=== PATIENT | female | born 1970 | race African-American/Black ===

== ENCOUNTER 2016-12-12 07:24 | Emergency (ER) | payer MEDICAID ==
[~2016-12-12] VITALS: Ht 149.9 cm; Wt 48.0 kg
[~2016-12-12 07:24] MED LIST: OXYC20TA2 PO
[2016-12-12] MEDS ORDERED: ONDANSETRON 2MG/ML, 2ML IVPush ONE (08:00)
[2016-12-12] MEDS ORDERED: SODIUM CHLORIDE 0.9% 1,000ML IVBOLUS ONE (08:00)
[2016-12-12] MEDS ORDERED: SODIUM CHLORIDE FLUSH 10ML SYR IVF ONE (08:00)
[2016-12-12] MEDS ORDERED: ONDANSETRON 2MG/ML, 2ML ONE (08:12)
[2016-12-12] MEDS ORDERED: MAALOX/HYOSCYAMINE/LIDOCAINE 45 ML BOTTLE ONE (08:27)
[2016-12-12] MEDS ORDERED: FAMOTIDINE 20 MG/2 ML ONE (08:27)
[2016-12-12] MEDS ORDERED: FAMOTIDINE 20 MG/2 ML IVP ONE (08:30)
[2016-12-12] MEDS ORDERED: MAALOX/HYOSCYAMINE/LIDOCAINE 45 ML BOTTLE PO ONE (08:30)
[2016-12-12 08:41] LABS: ASPARTATE AMINO TRANSFERASE 12 U/L (15-37); BLOOD UREA NITROGEN 13 mg/dL (7-18)
[2016-12-12 08:46] LABS: IS PT STATUS REG ER OR PRE ER? YES
[2016-12-12] MEDS ORDERED: PROMETHAZINE 25 MG/ML, 1ML IM ONE (09:00)
[2016-12-12] MEDS ORDERED: PROMETHAZINE 25 MG/ML, 1ML ONE (09:39)
[2016-12-12] MEDS ORDERED: MORPHINE SULFATE 4 MG/ML, 1ML ONE (10:03)
[2016-12-12 10:24] VITALS: BP 124/68
[2016-12-12] MEDS ORDERED: MORPHINE SULFATE 4 MG/ML, 1ML IVPush PRN (10:30)
[2016-12-13] MEDS ORDERED: ALPR0.5T10 SL (02:37)
== END 2016-12-12 10:42 | disposition home or self-care (01) ==
LOC: ED 08:41
DX: A08.4 Viral intestinal infection, unspecified (principal); R10.84 Generalized abdominal pain
CPT/HCPCS: 36415; 80053; 81001; 83690; 84484; 84703; 85025; 87086; 93005; 96361; 96372; 96374; 96375; 99285; J2405; J2550; J7030; S0028

== ENCOUNTER 2016-12-13 02:27 | Emergency (ER) | payer MEDICAID ==
[~2016-12-13] VITALS: Ht 149.9 cm; Wt 52.3 kg
[2016-12-13] MEDS ORDERED: ALPR0.5T10 SL (02:37)
[2016-12-13] MEDS ORDERED: PROMETHAZINE 25 MG/ML, 1ML ONE (02:52)
[2016-12-13] MEDS ORDERED: DICYCLOMINE 10 MG/ML, 2ML IM ONE (03:00)
[2016-12-13] MEDS ORDERED: PROMETHAZINE 25 MG/ML, 1ML IM ONE (03:00)
[2016-12-13] MEDS ORDERED: MAALOX/HYOSCYAMINE/LIDOCAINE 45 ML BOTTLE ONE (03:06)
[2016-12-13] MEDS ORDERED: MAALOX/HYOSCYAMINE/LIDOCAINE 45 ML BOTTLE PO ONE (03:30)
[2016-12-13 03:57] VITALS: BP 146/88
== END 2016-12-13 04:00 | disposition home or self-care (01) ==
LOC: ED 03:43
DX: R10.84 Generalized abdominal pain (principal); R19.7 Diarrhea, unspecified; R11.2 Nausea with vomiting, unspecified
CPT/HCPCS: 71010; 93005; 96372; 99284; J0500; J2550

== ENCOUNTER 2017-02-21 18:11 | Inpatient (IN) | payer MEDICAID ==
[~2017-02-21] VITALS: Ht 149.9 cm; Wt 63.0 kg
[~2017-02-21 18:11] MED LIST changes: +ALPR0.5T10 SL
[2017-02-21] MEDS ORDERED: ONDANSETRON 2MG/ML, 2ML IVPush ONE (18:30)
[2017-02-21] MEDS ORDERED: SODIUM CHLORIDE 0.9% 1,000ML IVBOLUS ONE (18:30)
[2017-02-21] MEDS ORDERED: SODIUM CHLORIDE FLUSH 10ML SYR IVF ONE (18:30)
[2017-02-21] MEDS ORDERED: FAMOTIDINE 20 MG/2 ML IVP ONE (18:30)
[2017-02-21 19:23] LABS: HEMATOCRIT 42.8 % (34.6-47.8); HEMOGLOBIN 14.5 g/dL (11.7-16.4); WHITE BLOOD COUNT 17.3 x10^3/uL (3.4-10)
[2017-02-21 19:33] LABS: ASPARTATE AMINO TRANSFERASE 12 U/L (15-37); BLOOD UREA NITROGEN 9 mg/dL (7-18)
[2017-02-21] MEDS ORDERED: FAMOTIDINE 20 MG/2 ML ONE (19:58)
[2017-02-21] MEDS ORDERED: ONDANSETRON 2MG/ML, 2ML ONE (19:58)
[2017-02-21] MEDS ORDERED: MORPHINE SULFATE 4 MG/ML, 1ML ONE (21:16)
[2017-02-21] MEDS ORDERED: MORPHINE SULFATE 4 MG/ML, 1ML IVPush ONE (21:30)
[2017-02-21] MEDS ORDERED: OMNIPAQUE 350 MG/ML, 100ML BOTTLE ONE (23:08)
[2017-02-22] MEDS ORDERED: CEFOTETAN PMX 1GM/50ML 50 ML IV ONE
[2017-02-22] MEDS ORDERED: MORPHINE SULFATE 4 MG/ML, 1ML IVPush ONE
[2017-02-22] MEDS ORDERED: ONDANSETRON 2MG/ML, 2ML IVPush ONE
[2017-02-22] MEDS ORDERED: SODIUM CHLORIDE 0.9% 1,000 ML IV ONE (00:01)
[2017-02-22] MEDS ORDERED: MORPHINE SULFATE 4 MG/ML, 1ML ONE (00:14)
[2017-02-22] MEDS ORDERED: ONDANSETRON 2MG/ML, 2ML ONE ×2 (00:14→06:23)
[2017-02-22] MEDS ORDERED: CEFOTETAN PMX 1GM/50ML 50 ML ONE (00:14)
[2017-02-22] MEDS ORDERED: ONDANSETRON 2MG/ML, 2ML IVPush PRN (00:30)
[2017-02-22] MEDS ORDERED: HYDROmorphone 1 MG/ML, 1ML IVPush PRN (00:30)
[2017-02-22] MEDS ORDERED: SODIUM CHLORIDE FLUSH 10ML SYR IVF PRN (00:30)
[2017-02-22 01:30] VITALS: BP 133/71
[2017-02-22] MEDS ORDERED: BUPIVACAINE/PF 0.5% ONE (02:55)
[2017-02-22 03:23] VITALS: BP 133/71
[2017-02-22 05:22] VITALS: BP 106/64
[2017-02-22] MEDS ORDERED: FENTANYL PF 100 MCG/2ML ONE ×3 (06:17→08:22)
[2017-02-22] MEDS ORDERED: SUCCINYLCHOLINE 20 MG/ML, 10ML ONE (06:23)
[2017-02-22] MEDS ORDERED: ROCURONIUM 10 MG/ML ONE (06:23)
[2017-02-22] MEDS ORDERED: GLYCOPYRROLATE 0.2MG/1ML ONE (06:23)
[2017-02-22] MEDS ORDERED: DEXAMETHASONE 4 MG/ML, 1ML ONE (06:23)
[2017-02-22] MEDS ORDERED: NEOSTIGMINE 1 MG/ML, 10ML ONE (06:23)
[2017-02-22] MEDS ORDERED: CEFOTETAN 1 GM ONE (06:23)
[2017-02-22] MEDS ORDERED: BUPIVACAINE/PF-EPI 0.5% 1:200K IM ONE (06:37)
[2017-02-22] MEDS ORDERED: PROMETHAZINE 25 MG/ML, 1ML IV PRN (07:00)
[2017-02-22] MEDS ORDERED: ACETAMINOPHEN 325 MG TABLET PO PRN (07:00)
[2017-02-22] MEDS ORDERED: OXYcodone 5 MG/5 ML ORAL.SOL UDC PO PRN (07:00)
[2017-02-22] MEDS ORDERED: HYDROmorphone 2 MG/ML, 1ML ONE ×2 (07:07→08:22)
[2017-02-22] MEDS ORDERED: BUPIVACAINE/PF 0.25% ONE ×2 (07:16→07:27)
[2017-02-22] MEDS: FENTANYL PF 100 MCG/2ML IV PRN ×2 (08:24→08:29)
[2017-02-22] MEDS: HYDROmorphone 1 MG/ML, 1ML IV PRN ×2 (08:36→08:54)
[2017-02-22] MEDS ORDERED: OXYcodone 5 MG/5 ML ORAL.SOL UDC ONE (08:56)
[2017-02-22] MEDS ORDERED: ACETAMINOPHEN 650 MG/20.3 ML UDC ONE (08:57)
[2017-02-22 09:25] VITALS: BP 107/65
[2017-02-22] MEDS ORDERED: morphine SULFATE 10 MG/ML, 1ML IV PRN (10:00)
[2017-02-22] MEDS: FAMOTIDINE 20 MG/2 ML IVPush SCH ×2 (10:29→21:25)
[2017-02-22] MEDS: D5%-0.45NACL+KCL 20MEQ 1,000 ML IV SCH ×3 (10:29→20:07)
[2017-02-22] MEDS ORDERED: OXYcodone IR 5MG TABLET PO PRN (12:00)
[2017-02-22] MEDS: HYDROmorphone 2 MG/ML, 1ML IVPush PRN ×4 (12:07→21:27)
[2017-02-22 15:35] VITALS: BP 125/85
[2017-02-22] MEDS ORDERED: IBUPROFEN 200 MG TABLET PO PRN (19:00)
[2017-02-22 19:38] VITALS: BP 125/79
[2017-02-22] MEDS: ACETAMINOPHEN 325 MG TABLET PO PRN (21:31)
[2017-02-23] MEDS: ONDANSETRON 2MG/ML, 2ML IV PRN (01:13)
[2017-02-23 02:22] VITALS: BP 158/91
[2017-02-23] MEDS: PROCHLORPERAZINE 5 MG/ML, 2ML IVPush PRN ×2 (02:25→09:29)
[2017-02-23] MEDS: HYDROmorphone 2 MG/ML, 1ML IVPush PRN ×5 (03:32→17:35)
[2017-02-23 05:42] LABS: WHITE BLOOD COUNT 12.8 x10^3/uL (3.4-10)
[2017-02-23] MEDS: D5%-0.45NACL+KCL 20MEQ 1,000 ML IV SCH (05:49)
[2017-02-23 06:10] LABS: BLOOD UREA NITROGEN 4 mg/dL (7-18)
[2017-02-23 07:40] VITALS: BP 150/93
[2017-02-23] MEDS: SODIUM CHLORIDE FLUSH 10ML SYR IVF SCH ×2 (09:24→20:57)
[2017-02-23] MEDS: KETOROLAC 30 MG/1 ML IV SCH ×3 (11:04→23:37)
[2017-02-23 12:50] VITALS: BP 157/105
[2017-02-23 19:14] VITALS: BP 124/76
[2017-02-23] MEDS: OXYcodone IR 5MG TABLET PO PRN (20:56)
[2017-02-23] MEDS: ACETAMINOPHEN 325 MG TABLET PO PRN (22:07)
[2017-02-24 01:28] VITALS: BP 122/73
[2017-02-24] MEDS: OXYcodone IR 5MG TABLET PO PRN (03:13)
[2017-02-24] MEDS: ONDANSETRON 2MG/ML, 2ML IV PRN ×2 (03:31→10:04)
[2017-02-24] MEDS: HYDROmorphone 2 MG/ML, 1ML IVPush PRN ×2 (04:00→07:57)
[2017-02-24] MEDS: KETOROLAC 30 MG/1 ML IV SCH ×4 (04:41→23:09)
[2017-02-24] MEDS: PROCHLORPERAZINE 5 MG/ML, 2ML IVPush PRN (06:31)
[2017-02-24 06:55] VITALS: BP 137/85
[2017-02-24] MEDS: SODIUM CHLORIDE FLUSH 10ML SYR IVF SCH ×2 (07:57→23:09)
[2017-02-24] MEDS: D5%-0.45NACL+KCL 20MEQ 1,000 ML IV SCH ×2 (13:09→23:17)
[2017-02-24 14:04] LABS: BLOOD UREA NITROGEN 7 mg/dL (7-18)
[2017-02-24 14:05] LABS: HEMATOCRIT 36.1 % (34.6-47.8); HEMOGLOBIN 12.1 g/dL (11.7-16.4)
[2017-02-24] MEDS: MORPHINE SULFATE 4 MG/ML, 1ML IV PRN (15:04)
[2017-02-24 15:36] VITALS: BP 108/71
[2017-02-24 18:29] VITALS: BP 120/76
[2017-02-24] MEDS: ENOXAPARIN 30 MG/0.3 ML SQ SCH (23:12)
[2017-02-25 02:10] VITALS: BP 106/81
[2017-02-25 04:42] LABS: HEMATOCRIT 32.6 % (34.6-47.8); WHITE BLOOD COUNT 8.3 x10^3/uL (3.4-10)
[2017-02-25 04:54] LABS: BLOOD UREA NITROGEN 7 mg/dL (7-18)
[2017-02-25] MEDS: KETOROLAC 30 MG/1 ML IV SCH ×2 (04:57→12:28)
[2017-02-25] MEDS: MORPHINE SULFATE 4 MG/ML, 1ML IV PRN ×5 (06:05→23:13)
[2017-02-25 07:14] VITALS: BP 114/71
[2017-02-25] MEDS: SODIUM CHLORIDE FLUSH 10ML SYR IVF SCH ×2 (08:41→20:32)
[2017-02-25] MEDS: D5%-0.45NACL+KCL 20MEQ 1,000 ML IV SCH ×3 (08:42→18:08)
[2017-02-25] MEDS: ENOXAPARIN 30 MG/0.3 ML SQ SCH (08:42)
[2017-02-25 13:54] VITALS: BP 125/81
[2017-02-25] MEDS ORDERED: MORPHINE SULFATE 4 MG/ML, 1ML ONE ×3 (15:14→23:08)
[2017-02-25 19:18] VITALS: BP 121/81
[2017-02-25] MEDS ORDERED: ENOXAPARIN 30 MG/0.3 ML SQ SCH (21:00)
[2017-02-26] MEDS: D5%-0.45NACL+KCL 20MEQ 1,000 ML IV SCH (03:33)
[2017-02-26] MEDS ORDERED: MORPHINE SULFATE 4 MG/ML, 1ML ONE ×2 (03:47→08:02)
[2017-02-26] MEDS: MORPHINE SULFATE 4 MG/ML, 1ML IV PRN ×2 (03:50→08:05)
[2017-02-26 04:54] VITALS: BP 103/62
[2017-02-26 08:01] VITALS: BP 123/87
[2017-02-26] MEDS ORDERED: OXYC10TA6 PO (10:07)
[2017-02-26] MEDS ORDERED: PROM25TA10 PO (10:09)
== END 2017-02-26 10:15 | disposition home or self-care (01) | DRG 331 ==
LOC: ED 21:38 → EDIP 02-22 00:01 → 4NOR 02-22 00:55 → UNDODISIN 02-25 10:57
PROVIDERS: ADMIT Surgery; ATTEND Surgery
PROC: 0DBN0ZZ Excision of Sigmoid Colon, Open Approach (ICD-10-PCS; 2017-02-22)
PROC: 0DTJ0ZZ Resection of Appendix, Open Approach (ICD-10-PCS; 2017-02-22)
PROC: 0DJD4ZZ Inspection of Lower Intestinal Tract, Percutaneous Endoscopic Approach (ICD-10-PCS; 2017-02-22)
PROC: 0DBV0ZZ Excision of Mesentery, Open Approach (ICD-10-PCS; 2017-02-22)
PROC: 0DTJ4ZZ Resection of Appendix, Percutaneous Endoscopic Approach (ICD-10-PCS; principal; 2017-02-22 06:30)
DX: K35.3 Acute appendicitis with localized peritonitis (principal); K66.8 Other specified disorders of peritoneum; A05.9 Bacterial foodborne intoxication, unspecified; G89.29 Other chronic pain; G47.00 Insomnia, unspecified; Z53.31 Laparoscopic surgical procedure converted to open procedure; Z87.891 Personal history of nicotine dependence
CPT/HCPCS: 36415; 74177; 76700; 80048; 80053; 81001; 83690; 84703; 85025; 87324; 88304; 88305; 88341; 88342; 96361; 96374; 96375; 96376; J1100; J1170; J1650; J1885; J2270; J2405; J2710; J3010; J3490; Q9967; G0461; J0330; J0780; J3480; J7030; S0028; S0074

== ENCOUNTER 2017-03-04 12:22 | Emergency (ER) | payer MEDICAID ==
[~2017-03-04] VITALS: Ht 149.9 cm; Wt 54.5 kg
[~2017-03-04 12:22] MED LIST changes: +OXYC10TA6 PO; +PROM25TA10 PO
[2017-03-04] MEDS ORDERED: SODIUM CHLORIDE FLUSH 10ML SYR IVF ONE (13:30)
[2017-03-04] MEDS ORDERED: ONDANSETRON 2MG/ML, 2ML IVPush ONE (13:30)
[2017-03-04] MEDS ORDERED: MORPHINE SULFATE 4 MG/ML, 1ML IVPush PRN (13:30)
[2017-03-04] MEDS ORDERED: SODIUM CHLORIDE 0.9% 1,000ML IVBOLUS ONE (13:30)
[2017-03-04 14:10] LABS: HEMATOCRIT 40.6 % (34.6-47.8); HEMOGLOBIN 13.6 g/dL (11.7-16.4); WHITE BLOOD COUNT 4.5 x10^3/uL (3.4-10)
[2017-03-04 14:22] LABS: BLOOD UREA NITROGEN 9 mg/dL (7-18)
[2017-03-04 14:25] LABS: ASPARTATE AMINO TRANSFERASE 27 U/L (15-37)
[2017-03-04] MEDS ORDERED: OMNIPAQUE 350 MG/ML, 100ML BOTTLE ONE (16:23)
[2017-03-04 17:09] VITALS: BP 118/75
== END 2017-03-04 17:12 | disposition home or self-care (01) ==
LOC: ED 16:32
DX: R10.84 Generalized abdominal pain (principal); Z90.49 Acquired absence of other specified parts of digestive tract
CPT/HCPCS: 36415; 74000; 74177; 80053; 81003; 83690; 84703; 85025; 96361; 96374; 96375; 99285; J2405; J7030; Q9967

== ENCOUNTER 2017-03-07 16:32 | Emergency (ER) | payer MEDICAID ==
[~2017-03-07] VITALS: Ht 149.9 cm; Wt 53.9 kg
[2017-03-07] MEDS ORDERED: HYDROmorphone 1 MG/ML, 1ML IVPush PRN (17:00)
[2017-03-07] MEDS ORDERED: SODIUM CHLORIDE FLUSH 10ML SYR IVF ONE (17:00)
[2017-03-07] MEDS ORDERED: ONDANSETRON 2MG/ML, 2ML IVPush ONE ×2 (17:00→19:30)
[2017-03-07] MEDS ORDERED: SODIUM CHLORIDE 0.9% 1,000ML IVBOLUS ONE (17:00)
[2017-03-07 17:18] LABS: HEMATOCRIT 39.2 % (34.6-47.8); HEMOGLOBIN 13.1 g/dL (11.7-16.4); WHITE BLOOD COUNT 5.3 x10^3/uL (3.4-10)
[2017-03-07 17:29] LABS: BLOOD UREA NITROGEN 7 mg/dL (7-18)
[2017-03-07] MEDS ORDERED: ONDANSETRON 2MG/ML, 2ML ONE ×2 (18:15→19:30)
[2017-03-07] MEDS ORDERED: MORPHINE SULFATE 4 MG/ML, 1ML ONE (18:15)
[2017-03-07] MEDS ORDERED: HYDROmorphone 1 MG/ML, 1ML ONE (18:18)
[2017-03-07 19:38] VITALS: BP 134/94
== END 2017-03-07 19:43 | disposition home or self-care (01) ==
LOC: ED 19:04
DX: R10.84 Generalized abdominal pain (principal); Z87.891 Personal history of nicotine dependence; Z90.49 Acquired absence of other specified parts of digestive tract
CPT/HCPCS: 36415; 80048; 81003; 82040; 83605; 84145; 84703; 85025; 87040; 96361; 96374; 96375; 96376; 99284; J1170; J2405; J7030

== ENCOUNTER 2018-12-27 13:49 | Emergency (ER) | payer SELFPAY ==
[~2018-12-27] VITALS: Ht 149.9 cm; Wt 50.0 kg
--- NOTE | 2018-12-27 14:24 | NUR ---
REPORT FROM AMARIS NESS. ASSUMED CARE OF PATIENT AT THIS TIME.
--- NOTE | 2018-12-27 14:26 | NUR ---
US AT BEDSIDE,
[2018-12-27 14:34] LABS: BASOPHILS # (AUTO) 0.05 x10^3/uL (0-0.1); BASOPHILS % (AUTO) 1 % (0-1); EOSINOPHILS # (AUTO) 0.06 x10^3/uL (0-0.4); EOSINOPHILS % (AUTO) 2 % (1-7); LYMPHOCYTES # (AUTO) 1.83 x10^3/uL (1-3.4); LYMPHOCYTES % (AUTO) 50 % (22-44); MD NO; MEAN CORPUSCULAR HEMOGLOBIN 33.1 pg (27.0-34.8); MEAN CORPUSCULAR HGB CONC 33.2 g/dL (32.4-35.8); MEAN CORPUSCULAR VOLUME 99.7 fL (80-100); MEAN PLATELET VOLUME 6.4 fL (7.4-10.4); MONOCYTES # (AUTO) 0.27 x10^3/uL (0.2-0.8); MONOCYTES % (AUTO) 7 % (2-9); NEUTROPHILS # (AUTO) 1.48 x10^3/uL (1.8-6.8); NEUTROPHILS % (AUTO) 40 % (42-75); PLATELET COUNT 324 x10^3/uL (130-400); RED BLOOD COUNT 4.09 x10^6/uL (3.82-5.3)
[2018-12-27 14:42] LABS: ALANINE AMINOTRANSFERASE 20 U/L (12-78); ALBUMIN 3.2 g/dL (3.4-5.0); ANION GAP 8 mmol/L (5-15); CALCIUM 8.1 mg/dL (8.5-10.1); CHLORIDE 113 mmol/L (98-107); CREATININE 0.71 mg/dL (0.55-1.02)
--- NOTE | 2018-12-27 14:46 | NUR ---
TASK RN: PT RESTING IN GURNEY, EVEN/REGULAR RESPIRATIONS. PT ARROUSABLE TO VOICE. PT AMBULATED STEADILY TO RESTROOM TO PROVIDE UA. UA COLLECTED AND SENT TO LAB.
[2018-12-27 14:47] LABS: ALKALINE PHOSPHATASE 53 U/L (45-117); BILIRUBIN,TOTAL 0.4 mg/dL (0.2-1.0); TOTAL PROTEIN 7.3 g/dL (6.4-8.2)
[2018-12-27 15:03] LABS: MICROSCOPIC NOT IND
[2018-12-27] MEDS ORDERED: POTASSIUM CHLORIDE 20 MEQ TAB.ER.PRT ONE (15:13)
[2018-12-27 15:18] LABS: AMPHETAMINE SCREEN, URINE Negative (Negative); BARBITURATE SCREEN, URINE Negative (Negative); BENZODIAZEPINE SCREEN, URINE Negative (Negative); CANNABINOID SCREEN, URINE Negative (Negative); COCAINE SCREEN, URINE Negative (Negative); CULTURE INDICATED? NO; METHADONE SCREEN, URINE Negative (Negative); OPIATE SCREEN, URINE Positive (Negative)
--- NOTE | 2018-12-27 15:27 | NUR ---
RESULTS BACK, CHART UP FOR RECHECK.
[2018-12-27] MEDS ORDERED: POTASSIUM CHLORIDE 20 MEQ TAB.ER.PRT PO ONE (15:30)
[2018-12-27 15:34] VITALS: BP 137/90
[2018-12-27] MEDS ORDERED: MAALOX/HYOSCYAMINE/LIDOCAINE 45 ML BTL ONE (15:35)
--- NOTE | 2018-12-27 15:39 | NUR ---
PATIENT REPORTS, NOT FEELING WELL, GI COCKTAIL ORDERED AND ADMINISTERED PER ORDER, VS UPDATED IN CHART. PATIENT SITTING UP IN JAIME WALKER.
--- NOTE | 2018-12-27 15:58 | NUR ---
REPORT TO AMARIS BARAJAS. PATIENT WALKING OUT TO NURSES DESK WITH STEADY GAIT, ASKING FOR TYLENOL FOR OLSON. ANGELITA BAUTISTA. TYLENOL TO BE ORDERED AND ADMINISTERED BY AMARIS BARAJAS. PATIENT TO BE DC'D.
[2018-12-27] MEDS ORDERED: MAALOX/HYOSCYAMINE/LIDOCAINE 45 ML BTL PO ONE (16:00)
[2018-12-27] MEDS ORDERED: ACETAMINOPHEN 325 MG TABLET PO ONE (16:00)
[2018-12-27] MEDS ORDERED: ACETAMINOPHEN 325 MG TABLET ONE (16:01)
== END 2018-12-27 16:07 | disposition home or self-care (01) ==
LOC: ED 14:53
DX: F10.121 Alcohol abuse with intoxication delirium (principal); F11.129 Opioid abuse with intoxication, unspecified; F17.210 Nicotine dependence, cigarettes, uncomplicated
CPT/HCPCS: 36415; 76700; 80053; 80307; 81003; 83690; 84702; 85025; 99284

== ENCOUNTER 2018-12-31 09:06 | Emergency (ER) | payer BC ==
[~2018-12-31] VITALS: Ht 149.9 cm; Wt 47.5 kg
[2018-12-31] MEDS ORDERED: SODIUM CHLORIDE FLUSH 10ML SYR IVF ONE (09:30)
--- NOTE | 2018-12-31 09:47 | NUR ---
BIOLOGICAL TECHNICIAN: PT TO ROOM FROM WALDEMAR NUNEZ
--- NOTE | 2018-12-31 10:01 | NUR ---
PT BIB AMBULANCE FOR DIZZINESS AND SHAKINESS X "A COUPLE DAYS". PT STATES SHE WAS CLEAN FROM [facility] FOR 14 DAYS, THEN RELAPSED 5 DAYS AGO, AND HASNT USED SINCE. PT STATES THAT THE SHAKES AND DIZZINESS ARE DIFFERENT THAN WHEN SHE DETOXES FROM [facility]. PT STATES SHE DRANK 3 SHOTS OF WHISKEY THIS AM TO TRY TO REDUCE SHAKES, WITH NO SUCCESS. PT CONNECTED TO ALL MONITORS. VSS. PIT ORDERS RECEIVED. AWAITING EDMD ASSESSMENT.
--- NOTE | 2018-12-31 10:09 | NUR ---
PT ALSO STATES INTERMITTENT, NON-RAD STERNAL CHEST PRESSURE X "A FEW WEEKS." PT STATES NOTHING RELIEVES OR AGGRAVATES THE PRESSURE. PT CURRENTLY RATES PAIN 0/10.
[2018-12-31 10:28] LABS: BASOPHILS # (AUTO) 0.03 x10^3/uL (0-0.1); BASOPHILS % (AUTO) 1 % (0-1); EOSINOPHILS # (AUTO) 0.04 x10^3/uL (0-0.4); EOSINOPHILS % (AUTO) 1 % (1-7); LYMPHOCYTES % (AUTO) 18 % (22-44); MD NO; MEAN CORPUSCULAR HEMOGLOBIN 34.4 pg (27.0-34.8); MEAN CORPUSCULAR HGB CONC 33.9 g/dL (32.4-35.8); MEAN CORPUSCULAR VOLUME 101.6 fL (80-100); MEAN PLATELET VOLUME 6.8 fL (7.4-10.4); MONOCYTES # (AUTO) 0.46 x10^3/uL (0.2-0.8); MONOCYTES % (AUTO) 8 % (2-9); NEUTROPHILS # (AUTO) 4.49 x10^3/uL (1.8-6.8); NEUTROPHILS % (AUTO) 73 % (42-75); PLATELET COUNT 298 x10^3/uL (130-400); RED CELL DISTRIBUTION WIDTH 13.4 % (9.6-15.2)
[2018-12-31 10:33] LABS: ALANINE AMINOTRANSFERASE 22 U/L (12-78); ALBUMIN 3.7 g/dL (3.4-5.0); ANION GAP 7 mmol/L (5-15); CALCIUM 8.3 mg/dL (8.5-10.1); CHLORIDE 110 mmol/L (98-107); CREATININE 0.62 mg/dL (0.55-1.02)
[2018-12-31 10:37] LABS: ALKALINE PHOSPHATASE 64 U/L (45-117); BILIRUBIN,TOTAL 0.5 mg/dL (0.2-1.0); TOTAL PROTEIN 7.9 g/dL (6.4-8.2); TROPONIN I < 0.015 ng/mL (0.000-0.045)
[2018-12-31 10:54] VITALS: BP 162/105
--- NOTE | 2018-12-31 10:55 | NUR ---
PT RESTING IN ROOM. VSS. AWAITING RECHECK AND DISPO.
== END 2018-12-31 11:39 | disposition home or self-care (01) ==
LOC: ED 11:30
DX: F11.10 Opioid abuse, uncomplicated (principal)
CPT/HCPCS: 36415; 71045; 80053; 84484; 85025; 93005; 99284